=== PATIENT | male | born 1955 | race Caucasian/White ===

== ENCOUNTER → 2017-07-30 06:59 | Outpatient (CLI) | payer OTHER, SELFPAY ==
[2017-07-30 08:47] LABS: AST(SGOT) 18 U/L (15-37); Alanine Aminotransfer ALT/SGPT 25 U/L (16-61); Albumin, Serum 3.6 g/dL (3.2-5.0); Alkaline Phosphatase 80 U/L (45-117); Bilirubin, Direct 0.19 mg/dL (0.00-0.30); Cholesterol 143 mg/dL (200); Globulin 3.5 g/dL (2.2-4.2); High Density Lipoprotein 51 mg/dL; Protein, Total 7.1 g/dL (6.4-8.2); Triglycerides 78 mg/dL; Very Low Density Lipoprotein 16 mg/dL (5-40)
== END ==
PROVIDERS: Family Provider Family Medicine; PCP Family Medicine; Visit Provider Internal Medicine Cardiovascular Disease
DX: E78.5 Hyperlipidemia, unspecified (principal); Z79.899 Other long term (current) drug therapy
CPT/HCPCS: 36415; 80061; 80076

== ENCOUNTER → 2018-02-07 08:01 | Outpatient (CLI) | payer OTHER, SELFPAY ==
[2018-02-07 09:19] LABS: AST(SGOT) 20 U/L (15-37); Alanine Aminotransfer ALT/SGPT 29 U/L (16-61); Albumin, Serum 3.8 g/dL (3.2-5.0); Alkaline Phosphatase 92 U/L (45-117); Bilirubin, Direct 0.16 mg/dL (0.00-0.30); Cholesterol 141 mg/dL (200); Globulin 3.6 g/dL (2.2-4.2); High Density Lipoprotein 54 mg/dL; Protein, Total 7.4 g/dL (6.4-8.2); Triglycerides 74 mg/dL; Very Low Density Lipoprotein 15 mg/dL (5-40)
== END ==
PROVIDERS: Family Provider Family Medicine; PCP Family Medicine; Referring Provider Internal Medicine Cardiovascular Disease; Visit Provider Internal Medicine Cardiovascular Disease
DX: E78.5 Hyperlipidemia, unspecified (principal); Z79.899 Other long term (current) drug therapy
CPT/HCPCS: 36415; 80061; 80076

== ENCOUNTER → 2018-03-24 06:55 | Outpatient (CLI) | payer OTHER, SELFPAY ==
[2018-03-07 15:46] VITALS: BMI 29.9
--- NOTE | 2018-03-24 06:57 | ECHOD_ITS ---
Reason For Study: S/P VT Procedure This was a 2D Doppler, Color Flow transthoracic echocardiogram. Exam performed in department. Left Ventricle Normal LV size. Left ventricular systolic function is normal. The estimated ejection fraction is 55 %. Stage 1 diastolic dysfunction. No regional wall motion abnormalities noted. Right Ventricle Normal RV size. Normal systolic function. Atria Normal left atrium. Normal right atrium. Mitral Valve Normal mitral valve. Tricuspid Valve Normal tricuspid valve. Mild tricuspid valve insufficiency. Pulmonary artery systolic pressure is 24 mmHg. Aortic Valve Trisinus/trileaflet aortic valve. Mild diffuse aortic valve thickening. Pulmonic Valve Normal pulmonic valve. Great Vessels Normal aortic root. The pulmonary artery is normal size. Normal inferior vena cava. Pericardium/Pleural No pericardial effusion. MMode/2D Measurements & Calculations LVIDd: 4.6 cm IVSd: 1.0 cm Ao root diam: 3.2 cm LVIDs: 3.2 cm LVPWd: 1.1 cm FS: 31.5 % LAV(MOD-bp): 55.5 ml LA A4 area: 18.8 cm2 LA dimension(2D): 3.7 cm LAV(MOD-bp) Indexed: 28.6 ml/m2 LAV(MOD-sp2): 57.8 ml LAV(MOD-sp4): 51.0 ml RA A4 area: 16.2 cm2 Time Measurements MV dec time: 0.24 sec Doppler Measurements & Calculations MV E max han: 61.1 cm/sec Lat Peak E' Han: 9.6 cm/sec Med Peak E' Han: 7.6 cm/sec MV A max han: 74.5 cm/sec E/E' lat: 6.4 E/E' med: 8.1 MV E/A: 0.82 Ao V2 max: 125.4 cm/sec LV V1 max: 116.5 cm/sec PA V2 max: 118.2 cm/sec Ao max P.3 mmHg LV V1 max P.4 mmHg TR max han: 221.9 cm/sec TR max P.7 mmHg Interpretation Summary Normal LV size. Left ventricular systolic function is normal. The estimated ejection fraction is 55 %. Stage 1 diastolic dysfunction. Mild tricuspid valve insufficiency. Ordering Physician: Ellis Hall Referring Physician: Mark Hartman Performed By: Yoana Ga RDCS, RVT
--- NOTE | 2018-03-24 09:18 | STRESSREP ---
Stress Test Report Exercise myocardial perfusion stress test. 63-year-old man with a history of previous coronary bypass surgery. Stress protocol: Resting EKG demonstrates normal sinus rhythm with a rate of 73 bpm normal intervals are noted resting blood pressure is 150/80 mmHg. The patient exercised according to regular Louis protocol for a total duration of 9 minutes completing stage III of the Louis protocol. The maximum heart rate attained was 150 bpm which was 94% of maximum predicted heart rate the maximum workload was 10.1 metabolic equivalents. The patient maintained sinus rhythm throughout the recording. At rest there were no ST or T wave changes noted suggest ischemia peak exercise upsloping ST changes only were noted with normally the criteria for ischemia. Resting blood pressure 150/80 mmHg with a peak blood pressure of 230/72 mmHg rate pressure product was 34,000. Hypertensive response to exercise was noted. Myocardial perfusion protocol. 11.0 mCi of technetium 99m sestamibi was injected at rest. The patient exercised according to regular Louis protocol for 9 minutes and at peak exercise 33.0 mCi of technetium and 90 9M sestamibi was injected stress images were obtained stress and rest images were reconstructed and compared in the short axis vertical long horizontal long axis. Gated images were also obtained Perfusion SPECT analysis: Review of the stress images demonstrate normal uptake of tracer noted in all areas of the myocardium. The resting images similarly demonstrate normal uptake of tracer noted in all areas of myocardium. No areas of reversibility are noted suggest ischemia. Gated SPECT analysis: The gated ejection fraction is noted to be 62%. Conclusion: Normal exercise myocardial perfusion stress test at a high workload. Preserved ejection fraction. Good functional aerobic capacity.
== END ==
PROVIDERS: Family Provider Family Medicine; PCP Family Medicine; Referring Provider Internal Medicine Cardiovascular Disease; Visit Provider Internal Medicine Cardiovascular Disease
DX: I25.10 Atherosclerotic heart disease of native coronary artery without angina pectoris (principal); Z95.1 Presence of aortocoronary bypass graft
CPT/HCPCS: 78452; 93017; 93306; A9500; A4216

== ENCOUNTER → 2019-03-03 07:56 | Outpatient (CLI) | payer OTHER, SELFPAY ==
[2018-03-07 15:46] VITALS: BMI 29.9
[2019-03-03 09:27] LABS: AST(SGOT) 20 U/L (15-37); Alanine Aminotransfer ALT/SGPT 28 U/L (16-61); Albumin, Serum 3.8 g/dL (3.2-5.0); Alkaline Phosphatase 78 U/L (45-117); Bilirubin, Direct 0.15 mg/dL (0.00-0.30); Cholesterol 148 mg/dL (200); Globulin 3.7 g/dL (2.2-4.2); High Density Lipoprotein 60 mg/dL; Protein, Total 7.5 g/dL (6.4-8.2); Triglycerides 47 mg/dL; Very Low Density Lipoprotein 9 mg/dL (5-40)
== END ==
PROVIDERS: Family Provider Family Medicine; PCP Family Medicine; Referring Provider Nurse Practitioner Family; Visit Provider Nurse Practitioner Family
DX: E78.00 Pure hypercholesterolemia, unspecified (principal)
CPT/HCPCS: 36415; 80061; 80076

== ENCOUNTER → 2020-03-15 07:19 | Outpatient (CLI) | payer OTHER, SELFPAY ==
[2019-03-08 11:56] VITALS: BMI 26.8
[2020-03-15 08:38] LABS: AST(SGOT) 21 U/L (15-37); Alanine Aminotransfer ALT/SGPT 28 U/L (16-61); Albumin, Serum 3.8 g/dL (3.2-5.0); Alkaline Phosphatase 94 U/L (45-117); Bilirubin, Direct 0.26 mg/dL (0.00-0.30); Cholesterol 147 mg/dL (200); Globulin 3.8 g/dL (2.2-4.2); High Density Lipoprotein 69 mg/dL; Protein, Total 7.6 g/dL (6.4-8.2); Triglycerides 71 mg/dL; Very Low Density Lipoprotein 14 mg/dL (5-40)
== END ==
PROVIDERS: PCP Family Medicine; Referring Provider Nurse Practitioner Family; Visit Provider Nurse Practitioner Family
DX: E78.00 Pure hypercholesterolemia, unspecified (principal); E78.5 Hyperlipidemia, unspecified
CPT/HCPCS: 36415; 80061; 80076

== ENCOUNTER → 2020-10-31 08:00 | Outpatient (CLI) | payer OTHER, SELFPAY ==
[2020-03-20 15:32] VITALS: BMI 26.9
--- NOTE | 2020-10-31 08:17 | EKG12_ITS ---
Test Reason : PREOP Blood Pressure : / mmHG Vent. Rate : 064 BPM Atrial Rate : 064 BPM P-R Int : 194 ms QRS Dur : 106 ms QT Int : 400 ms P-R-T Axes : 036 031 035 degrees QTc Int : 412 ms Normal sinus rhythm Septal infarct , age undetermined Abnormal ECG Confirmed by EBEN LEDEZMA, MARTIR ([id number]), newspaper editor managing MONIQUE MIRAMONTES ([id number]) on 11/03/2020 9:50:02 AM Referred By: KAT Confirmed By:RADHA TREADWELL MD
[2020-10-31 08:28] LABS: Hematocrit 41.7 % (40-54); Hemoglobin 13.8 g/dL (13.0-16.5); Mean Corp Hgb Conc 33.1 g/dL (32-36); Mean Corpuscular Hgb 29.1 pg (27.0-32.0); Mean Platelet Vol. 8.8 fl (6.2-12.0); Platelet Count 245 K/mm3 (150-450); RBC Distribution Width CV 12.4 % (11.6-14.6); RBC Distribution Width SD 40.1 fl (35.1-43.9); Red Blood Count 4.74 M/mm3 (4.6-6.2)
[2020-10-31 09:17] LABS: AST(SGOT) 22 U/L (15-37); Alanine Aminotransfer ALT/SGPT 26 U/L (16-61); Albumin, Serum 3.7 g/dL (3.2-5.0); Alkaline Phosphatase 87 U/L (45-117); Anion Gap 5 (5-15); BUN 21 mg/dL (7-18); BUN/Creat Ratio 16.4 RATIO (10-20); Bilirubin, Direct 0.22 mg/dL (0.00-0.30); Calcium,Total 8.8 mg/dL (8.5-10.1); Chloride 107 mmol/L (98-107); Cholesterol 160 mg/dL (200); Creatinine, Serum 1.28 mg/dL (0.70-1.30); EST Glomerular Filtration Rate 60 mL/min (>60); Est Glom Filt Rate - Afr Amer 73 mL/min (>60); Globulin 3.7 g/dL (2.2-4.2); Glucose 93 mg/dL (74-106); High Density Lipoprotein 66 mg/dL; Potassium 3.6 mmol/L (3.5-5.1); Protein, Total 7.4 g/dL (6.4-8.2); Sodium Level 137 mmol/L (136-145); Triglycerides 60 mg/dL; Very Low Density Lipoprotein 12 mg/dL (5-40)
== END ==
PROVIDERS: Internal Medicine Cardiovascular Disease; PCP Family Medicine; Visit Provider Otolaryngology
DX: Z01.812 Encounter for preprocedural laboratory examination (principal); E78.5 Hyperlipidemia, unspecified
CPT/HCPCS: 36415; 80048; 80061; 80076; 85027; 93005

== ENCOUNTER → 2022-05-29 | Outpatient (CLI) | payer OTHER, SELFPAY ==
[2022-05-29 09:09] LABS: AST(SGOT) 17 U/L (15-37); Alanine Aminotransfer ALT/SGPT 28 U/L (16-61); Albumin, Serum 3.5 g/dL (3.2-5.0); Alkaline Phosphatase 72 U/L (45-117); Bilirubin, Direct 0.15 mg/dL (0.00-0.30); Cholesterol 138 mg/dL (200); Globulin 3.5 g/dL (2.2-4.2); High Density Lipoprotein 59 mg/dL; Triglycerides 55 mg/dL; Very Low Density Lipoprotein 11 mg/dL (5-40)
[2022-05-29 09:14] LABS: Anion Gap 6 (5-15); BUN 27 mg/dL (7-18); BUN/Creat Ratio 22.7 RATIO (10-20); Calcium,Total 8.5 mg/dL (8.5-10.1); Chloride 112 mmol/L (98-107); Creatinine, Serum 1.19 mg/dL (0.70-1.30); EST Glomerular Filtration Rate 65 mL/min (>60); Est Glom Filt Rate - Afr Amer 79 mL/min (>60); Glucose 104 mg/dL (74-106); PSA,Total - Annual Screen 0.38 ng/mL (0.00-4.00); Potassium 3.9 mmol/L (3.5-5.1); Sodium Level 142 mmol/L (136-145)
== END | disposition home or self-care (01) ==
LOC: LAB 08:02
PROVIDERS: Family Medicine; PCP Family Medicine; Visit Provider Internal Medicine Cardiovascular Disease
DX: Z00.00 Encounter for general adult medical examination without abnormal findings (principal); E78.00 Pure hypercholesterolemia, unspecified; I25.10 Atherosclerotic heart disease of native coronary artery without angina pectoris; Z12.5 Encounter for screening for malignant neoplasm of prostate
CPT/HCPCS: 80048; 80061; 80076; 84153; G0103

== ENCOUNTER → 2022-09-07 | Outpatient (CLI) | payer OTHER, SELFPAY ==
--- NOTE | 2022-09-07 17:00 | STRESSREP ---
Stress Test Report Exercise myocardial perfusion stress test. 67-year-old man with a history of coronary artery disease Stress protocol: Resting EKG demonstrates normal sinus rhythm with a rate of 61 bpm resting blood pressure is 160/70 mmHg. The patient exercised according to the regular Louis protocol for a total duration of 9 minutes and 16 seconds attaining a maximum heart rate of 141 bpm which was 90% of maximum predicted heart rate; the maximum workload was 10.9 METS metabolic equivalents. At rest there were no ST or T wave changes noted to suggest ischemia and at peak exercise upsloping ST changes only were noted which did not meet the criteria for ischemia. No clinical angina was noted the test was terminated due to the target heart rate being achieved/fatigue. The peak blood pressure was 190/86 mmHg. Rate-pressure product was 24,900. Myocardial perfusion protocol. 11.4 mCi of technetium 99m sestamibi was injected at rest. The patient exercised according to regular Louis protocol for total duration of 9 minutes and 16 seconds and at peak exercise 33.3 mCi of technetium 99m sestamibi was injected stress images were obtained stress and rest images were reconstructed in comparing the short axis vertical long and horizontal long axis. Gated images were also obtained. Perfusion SPECT analysis: Review of the stress images demonstrate normal uptake of tracer noted in all areas of the myocardium. The resting images similarly demonstrate normal uptake of tracer noted in all areas of the myocardium. No areas of reversibility are noted to suggest ischemia no previous infarct was noted. Gated SPECT analysis: The gated ejection fraction is 68%. Conclusion: Normal exercise myocardial perfusion stress test at a high workload Preserved ejection fraction.
== END | disposition home or self-care (01) ==
LOC: CVS 06:26
PROVIDERS: PCP Family Medicine; Referring Provider Internal Medicine Cardiovascular Disease; Visit Provider Internal Medicine Cardiovascular Disease
DX: I25.10 Atherosclerotic heart disease of native coronary artery without angina pectoris (principal); Z95.1 Presence of aortocoronary bypass graft
CPT/HCPCS: 78452; 93017; A9500; A4216

== ENCOUNTER → 2023-06-27 | Outpatient (CLI) | payer MEDICARE, OTHER, SELFPAY ==
--- NOTE | 2023-06-27 11:26 | RAD_ITS ---
EXAM: XR CHEST, 2 VIEWS CLINICAL INDICATION: cough TECHNIQUE: Frontal and lateral views of the chest. COMPARISON: No relevant prior studies available. FINDINGS: LUNGS AND PLEURAL SPACES: Normal. No consolidation or edema. No pneumothorax. No effusion. HEART: Normal heart size. Surgical changes of coronary artery bypass graft (CABG). MEDIASTINUM: No mediastinal or hilar mass. BONES/JOINTS: No acute abnormality. RAD/Chest PA and Lateral IMPRESSION: No acute findings in the chest. Electronically Signed: Barak Kim MD at 9:30 EDT ,
--- OUTSIDE RECORDS SUMMARY | 2023-06-27 12:44 | XMS RPT_ITS | CCD ---
Author Name Unknown Address [address] [place] [address] Organization [facility] Care Team Providers Care Hunter Trapper Name Role Phone Juana Nelson Unavailable Unavailable ESTUARDO WEISS Attending Unavailable ESTUARDO WEISS Primary Care Unavailable ESTUARDO WEISS Admitting Unavailable Allergies Allergy Classification Reported Allergen(s) Allergy Type Date of Onset Reaction(s) Facility (1 source) NTG drug allergy 4 Sever hypotension [facility] Work Phone: (2 sources) NKDA drug allergy 3 [facility] Work Phone: (1 source) nitroglycerin; Translations: [NITROGLYCERIN] Drug Allergy 6 [facility] Repository Medications Completed/Discontinued Medications Medication Drug Class(es) Dates Sig (Normalized) Sig (Original) adalimumab (2 sources) Tumor Necrosis Factor [place] Start: 09-25-2010 End: 01-18-2012 HUMIRA 40 MG/0.8ML KIT SQ for Psoriasis ADALIMUMAB [id number] Ellis Hall MD Problems Active Problems Problem Classification Problem Date Documented Da te Episodic/Chronic Coronary atherosclerosis and other heart disease (4 sources) Angina decubitus; Translations: [Coronary atherosclerosis] Onset: 09-25-2010 Resolved: 01-27-2016 09-25-2010 Chronic Disorders of lipid metabolism (1 source) Hyperlipidemia; Translations: [Hyperlipidemia, unspecified] Onset: 09-25-2010 09-25-2010 Chronic Essential hypertension (1 source) Hypertensive disorder; Translations: [Essential (primary) hypertension] Onset: 09-25-2010 09-25-2010 Chronic Unclassified (1 source) Long-term drug therapy; Translations: [Other penitentiary (current) drug therapy] Onset: 09-25-2010 09-25-2010 Past or Other Problems Problem Classification Problem Date Documented Da te Episodic/Chronic Coronary atherosclerosis and other heart disease (1 source) Presence of aortocoronary bypass graft; Translations: [Presence of aortocoronary bypass graft] Onset: 09-25-2010 09-25-2010 Episodic Other circulatory disease (1 source) H/O: heart disorder; Translations: [Personal history of other diseases of the circulatory system] Onset: 09-25-2010 01-27-2016 Episodic Xenia-; endo-; and myocarditis; cardiomyopathy (1 source) Acute pericarditis; Translations: [Acute pericarditis, unspecified] Onset: 09-25-2010 09-25-2010 Episodic Unclassified (2 sources) Body mass index (BMI) 26.0-26.9, adult; Translations: [Family history of stroke] Onset: 01-23-2013 01-23-2013 Episodic Results Test Name Value Interpretation Reference Range Facil ity Vital Signs Date Time Vital Sign Value Performing Clinician Aiden manrique 07-27-2016 09:51-0400 BMI (Body Mass Index) 26.98 kg/m2 [facility] Work Phone: 07-27-2016 09:51-0400 BP Diastolic 92 mm[Hg] [facility] Work Phone: 07-27-2016 09:51-0400 BP Systolic 166 mm[Hg] IEV DeFinis [facility] Work Phone: 07-27-2016 09:51-0400 Height 168.91 cm IEV DeFinis [facility] Work Phone: 07-27-2016 09:51-0400 Pulse (Heart Rate) 61 /min IEV DeFinis [facility] Work Phone: 07-27-2016 09:51-0400 Respiratory Rate 18 /min In[facility] Work Phone: 07-27-2016 09:51-0400 Weight 76.98 kg Infrascaleis [facility] Work Phone: 01-27-2016 08:48-0400 BSA (Body Surface Area) 1.88 m2 Juana DeFinis [facility] Work Phone: 01-21-2015 08:34-0400 BP Diastolic 60 mm[Hg] Juana DeFinis [facility] Work Phone: 01-21-2015 08:34-0400 BP Systolic 178 mm[Hg] Harraul DeFinesteban [facility] Work Phone: 01-23-2013 08:31-0400 Pulse (Heart Rate) 66 /min Juana DeFinis [facility] Work Phone: Encounters Encounter Date Encounter Type Care Provider Facility Start: 06-24-2020 End: 06-24-2020 Patient encounter procedure ESTUARDO WEISS [facility] Start: 06-21-2017 End: 06-22-2017 Ambulatory [facility] Procedures Date Procedure Procedure Detail Performing Clinician Start: 01-18-2017 End: 02-07-2017 *Hepatic Function Panel Mani Baptiste Start: 01-18-2017 End: 02-07-2017 Lipid Mamadou panel - Serum or Plasma Ellis Hall MD Start: 07-27-2016 End: 07-27-2016 UPHOLSTERY BUNDLER Danisha Bravo PA-C Work Phone: Start: 07-27-2016 End: 07-27-2016 Follow Up Appt 6 months Danisha hernandes PA-C Work Phone: Start: 07-19-2016 End: 07-19-2016 *Hepatic Function Panel Mani Baptiste Start: 07-19-2016 End: 07-19-2016 Lipid Mamadou panel - Serum or Plasma Ellis Hall MD Start: 01-27-2016 End: 01-27-2016 Follow Up Appt 6 months Mani Baptiste Start: 01-27-2016 End: 01-27-2016 MMM Ellis Hall MD Start: 01-17-2016 End: 01-26-2016 *Hepatic Function Panel Mani Baptiste Start: 01-17-2016 End: 01-26-2016 Lipid 1996 panel - Serum or Plasma Ellis Hall MD Start: 07-18-2015 End: 08-04-2015 *Hepatic Function Panel Mani Baptiste Start: 07-18-2015 End: 08-04-2015 Lipid 1996 panel - Serum or Plasma Ellis Hall MD Start: 01-21-2015 End: 01-21-2015 UPHOLSTERY BUNDLER Ellis Hall MD Start: 01-21-2015 End: 01-22-2015 Documentation of current medications Ellis Hall MD Start: 01-21-2015 End: 01-21-2015 Follow Up Appt 1 year Ellis Hall MD Start: 01-16-2015 End: 01-16-2015 *Hepatic Function Panel Mani Baptiste Start: 01-16-2015 End: 01-16-2015 Lipid 1996 panel - Serum or Plasma Ellis Hall MD Start: 07-22-2014 End: 07-29-2014 *Hepatic Function Panel Mani Baptiste Start: 07-22-2014 End: 07-29-2014 Lipid 1996 panel - Serum or Plasma Ellis Hall MD Start: 01-22-2014 End: 01-22-2014 ADRIAN Hall MD Start: 01-22-2014 End: 01-22-2014 Follow Up Appt 1 year Ellis Hall MD Start: 01-16-2014 End: 01-21-2014 *Hepatic Function Panel Mani Baptiste Start: 01-16-2014 End: 01-21-2014 Lipid 1996 panel - Serum or Plasma Ellis Hall MD Start: 07-17-2013 End: 08-14-2013 *Hepatic Function Panel Mani Baptiste Start: 07-17-2013 End: 08-14-2013 Lipid 1996 panel - Serum or Plasma Ellis Hall MD Start: 01-23-2013 End: 01-21-2015 UPHOLSTERY BUNDLER Ellis Hall MD Start: 01-23-2013 End: 01-23-2013 Ecg routine ecg w/least 12 lds w/i&r Ellis Hall MD Start: 01-23-2013 End: 01-21-2015 Follow Up Appt 1 year Ellis Hall MD Start: 01-23-2013 End: 01-31-2013 Nuclear stress test -exercise lElis Hall MD Start: 01-16-2013 End: 01-24-2013 *Hepatic Function Panel Mani Baptiste Start: 01-16-2013 End: 01-24-2013 Lipid Mamadou panel - Serum or Plasma Ellis Hall MD Start: 02-09-2012 End: 08-16-2012 *Hepatic Function Panel Mani Baptiste Start: 02-09-2012 End: 08-16-2012 Lipid 1996 panel - Serum or Plasma Ellis Hall MD Start: 01-18-2012 End: 01-21-2015 Follow Up Appt 6 months Mani Baptiste Plan of Treatment Date Care Activity Detail Author Start: 08-08-2017 End: 02-11-2017 *Hepatic Function Panel *Hepatic Function Panel [facility] Work Phone: Start: 08-08-2017 End: 02-11-2017 Lipid panel [AGGREGATE] *Lipid Profile CC PCP [facility] Work Phone: Start: 02-15-2017 End: 02-15-2017 Appointment Appointment [facility] Work Phone: Start: 01-18-2017 End: 02-07-2017 *Hepatic Function Panel *Hepatic Function Panel [facility] Work Phone: Start: 01-18-2017 End: 02-07-2017 Lipid panel [AGGREGATE] *Lipid Profile CC PCP [facility] Work Phone: Start: 07-27-2016 End: 07-27-2016 UPHOLSTERY BUNDLER UPHOLSTERY BUNDLER [facility] Work Phone: Start: 07-27-2016 End: 07-27-2016 Follow Up Appt 6 months Follow Up Appt 6 months [facility] Work Phone: Start: 07-26-2016 End: 07-19-2016 *Hepatic Function Panel *Hepatic Function Panel [facility] Work Phone: Start: 07-26-2016 End: 07-19-2016 Lipid panel [AGGREGATE] *Lipid Profile CC PCP [facility] Work Phone: Start: 01-27-2016 End: 01-27-2016 Follow Up Appt 6 months Follow Up Appt 6 months [facility] Work Phone: Start: 01-27-2016 End: 01-27-2016 MMM MMM [facility] Work Phone: Start: 01-17-2016 End: 01-26-2016 *Hepatic Function Panel *Hepatic Function Panel [facility] Work Phone: Start: 01-17-2016 End: 01-26-2016 Lipid panel [AGGREGATE] *Lipid Profile CC PCP [facility] Work Phone: Start: 07-18-2015 End: 08-04-2015 *Hepatic Function Panel *Hepatic Function Panel [facility] Work Phone: Start: 07-18-2015 End: 08-04-2015 Lipid panel [AGGREGATE] *Lipid Profile CC PCP [facility] Work Phone: Start: 01-27-2015 End: 01-16-2015 *Hepatic Function Panel *Hepatic Function Panel [facility] Work Phone: Start: 01-27-2015 End: 01-16-2015 Lipid panel [AGGREGATE] *Lipid Profile CC PCP [facility] Work Phone: Start: 01-21-2015 End: 01-21-2015 UPHOLSTERY BUNDLER UPHOLSTERY BUNDLER [facility] Work Phone: Start: 01-21-2015 End: 01-21-2015 Follow Up Appt 1 year Follow Up Appt 1 year [facility] Work Phone: Start: 07-22-2014 End: 07-29-2014 *Hepatic Function Panel *Hepatic Function Panel [facility] Work Phone: Start: 07-22-2014 End: 07-29-2014 Lipid panel [AGGREGATE] *Lipid Profile CC PCP [facility] Work Phone: Start: 01-22-2014 End: 01-22-2014 UPHOLSTERY BUNDLER UPHOLSTERY BUNDLER [facility] Work Phone: Start: 01-22-2014 End: 01-22-2014 Follow Up Appt 1 year Follow Up Appt 1 year [facility] Work Phone: Start: 01-16-2014 End: 01-21-2014 *Hepatic Function Panel *Hepatic Function Panel [facility] Work Phone: Start: 01-16-2014 End: 01-21-2014 Lipid panel [AGGREGATE] *Lipid Profile CC PCP [facility] Work Phone: Start: 07-17-2013 End: 08-14-2013 *Hepatic Function Panel *Hepatic Function Panel [facility] Work Phone: Start: 07-17-2013 End: 08-14-2013 Lipid panel [AGGREGATE] *Lipid Profile CC PCP [facility] Work Phone: Start: 01-23-2013 End: 01-21-2015 UPHOLSTERY BUNDLER UPHOLSTERY BUNDLER [facility] Work Phone: Start: 01-23-2013 End: 01-23-2013 Ecg routine ecg w/least 12 lds w/i&r EKG (In office) [facility] Work Phone: Start: 01-23-2013 End: 01-21-2015 Follow Up Appt 1 year Follow Up Appt 1 year [facility] Work Phone: Start: 01-23-2013 End: 01-23-2013 Nuclear stress test -exercise Nuclear stress test -exercise [facility] Work Phone: Start: 01-16-2013 End: 01-24-2013 *Hepatic Function Panel *Hepatic Function Panel [facility] Work Phone: Start: 01-16-2013 End: 01-24-2013 Lipid panel [AGGREGATE] *Lipid Profile [facility] Work Phone: Start: 02-09-2012 End: 08-16-2012 *Hepatic Function Panel *Hepatic Function Panel [facility] Work Phone: Start: 02-09-2012 End: 08-16-2012 Lipid panel [AGGREGATE] *Lipid Profile [facility] Work Phone: Start: 01-18-2012 End: 01-18-2012 Follow Up Appt 6 months Follow Up Appt 6 months [facility] Work Phone: Patient Education [facility] Work Phone: Payers Date Payer Category Payer Unknown [id number] Private Health Insurance [id number] Summary Purpose Family History No Family History Records FoundNo Family History Records Found Advance Directives No Advanced Directives Records FoundNo Advanced Directives Records Found Additional Source Comments (unrecognized sect ion and content) No Status Records FoundNo Status Records Found INFORMATION SOURCE (unrecogn ized section and content) DATE CREATED AUTHOR AUTHOR'S GUILLERMOVIV ATION 07/06/2020 [facility] FOR RECORDS PERTAINING TO PATIENTS WHO ARE OR HAVE BEEN ENROLLED IN A CHEMICAL DEPENDENCY/SUBSTANCEABUSE PROGRAM, SOME INFORMATION MAY BE OMITTED. This clinical summary was aggregated from multiple sources. Caution should be exercised in using it in the provision of clinical care. This summary normalizes information from multiple sources, and as a consequence, information in this document may materially change the coding, format and clinical context of patient data. In addition, data may be omitted in some cases. CLINICAL DECISIONS SHOULD BE BASED ON THE PRIMARY CLINICAL RECORDS. [employer] provides no warranty or guarantee of the accuracy or completeness of information in this document.
== END | disposition home or self-care (01) ==
LOC: MTRAD 11:25
PROVIDERS: PCP Family Medicine; Referring Provider Family Medicine; Visit Provider Family Medicine
DX: J98.01 Acute bronchospasm (principal)
CPT/HCPCS: 71046

== ENCOUNTER → 2023-07-28 | Outpatient (CLI) | payer MEDICARE, OTHER, SELFPAY ==
[2023-07-28 08:11] LABS: Hematocrit 47.5 % (40-54); Mean Corp Hgb Conc 33.7 g/dL (32-36); Mean Corpuscular Hgb 29.4 pg (27.0-32.0); Mean Corpuscular Volume 87.2 fL (80-94); Mean Platelet Vol. 8.9 fl (6.2-12.0); Platelet Count 246 K/mm3 (150-450); RBC Distribution Width SD 41.2 fl (35.1-43.9); Red Blood Count 5.45 M/mm3 (4.6-6.2); White Blood Count 8.4 K/mm3 (4.4-11.0)
[2023-07-28 08:53] LABS: ALB/GLOB Ratio 0.9 RATIO (0.9-2.4); AST(SGOT) 23 U/L (15-37); Alanine Aminotransfer ALT/SGPT 43 U/L (16-61); Albumin, Serum 3.7 g/dL (3.2-5.0); Alkaline Phosphatase 89 U/L (45-117); Anion Gap 5 (5-15); BUN 21 mg/dL (7-18); BUN/Creat Ratio 14.9 RATIO (10-20); Calcium,Total 9.1 mg/dL (8.5-10.1); Chloride 108 mmol/L (98-107); Creatinine, Serum 1.41 mg/dL (0.70-1.30); EST Glomerular Filtration Rate 53 mL/min (>60); Est Glom Filt Rate - Afr Amer 65 mL/min (>60); Globulin 3.9 g/dL (2.2-4.2); Glucose 108 mg/dL (74-106); PSA,Total - Annual Screen 0.37 ng/mL (0.00-4.00); Potassium 3.8 mmol/L (3.5-5.1); Protein, Total 7.6 g/dL (6.4-8.2); Sodium Level 140 mmol/L (136-145)
[2023-07-28 10:03] LABS: Cholesterol 187 mg/dL (200); High Density Lipoprotein 59 mg/dL; Triglycerides 109 mg/dL; Very Low Density Lipoprotein 22 mg/dL (5-40)
== END | disposition home or self-care (01) ==
PROVIDERS: Internal Medicine Cardiovascular Disease; PCP Family Medicine; Referring Provider Family Medicine; Visit Provider Family Medicine
DX: E78.00 Pure hypercholesterolemia, unspecified (principal); I25.10 Atherosclerotic heart disease of native coronary artery without angina pectoris; Z12.5 Encounter for screening for malignant neoplasm of prostate
CPT/HCPCS: 36415; 80053; 80061; 84153; 85027; G0103

== ENCOUNTER → 2024-01-02 | Outpatient (CLI) | payer MEDICARE, OTHER, SELFPAY ==
--- NOTE | 2024-01-02 09:28 | RAD_ITS ---
INDICATION: pain R hip EXAMINATION/TECHNIQUE: X-RAY - RIGHT XR Hip Unilateral with Pelvis when performed; 2-3 Views COMPARISON: A radiation dose optimization technique was used for this scan. FINDINGS: Single frontal view of the pelvis. 2 views the right hip. BONES: Normal anatomic alignment without evidence of fracture or subluxation. Prominent exostosis of the right iliac wing. JOINTS: No significant degenerative change. SOFT TISSUES: Unremarkable. RAD/HIP, UNI W/ Pelvis 2-3 Views IMPRESSION: Prominent exostosis of the right iliac wing which may represent enthesophyte versus possible osteochondroma. No acute osseous abnormality. Electronically Signed: Jonathan Pearl MD at 7:03 EDT ,
--- NOTE | 2024-01-02 09:28 | RAD_ITS ---
EXAM: XR LUMBOSACRAL SPINE, 2 OR 3 VIEWS CLINICAL INDICATION: pain, ? scoliosis TECHNIQUE: Frontal and lateral views of the lumbar spine and sacrum. COMPARISON: No relevant prior studies available. FINDINGS: VERTEBRAE: Diffuse spondylosis with marginal osteophytes and mild disc space narrowing at the L3-L4 level. Bridging osteophytes anteriorly in the lower thoracic spine consistent with diffuse idiopathic skeletal hyperostosis. Mild anterolisthesis of L5-S1 measuring approximately 5 mm associated with bilateral facet arthropathy. Bilateral multilevel vertebral facet arthropathy. Preserved vertebral body height. No fracture. No significant scoliosis.SPACES: See above. GASTROINTESTINAL TRACT: Unremarkable as visualized. Included bowel gas pattern is non-obstructive. RAD/Lumbar Spine 2 or 3 Views IMPRESSION: 1. No significant scoliosis. 2. Mild anterolisthesis of L5-S1 measuring approximately 5 mm associated with bilateral facet arthropathy. 3. Diffuse spondylosis with marginal osteophytes and mild disc space narrowing at the L3-L4 level. 4. Bridging osteophytes anteriorly in the lower thoracic spine consistent with diffuse idiopathic skeletal hyperostosis. 5. Bilateral multilevel vertebral facet arthropathy. Electronically Signed: Jerome Aguila MD at 1:49 EDT ,
== END | disposition home or self-care (01) ==
PROVIDERS: PCP Family Medicine; Referring Provider Family Medicine; Visit Provider Family Medicine
DX: M25.551 Pain in right hip (principal)
CPT/HCPCS: 72100; 73502

== ENCOUNTER → 2024-09-13 | Outpatient (CLI) | payer MEDICARE, OTHER, SELFPAY ==
[2024-09-13 08:36] LABS: Hematocrit 42.9 % (40-54); Hemoglobin 14.6 g/dL (13.0-16.5); Mean Corpuscular Hgb 29.9 pg (27.0-32.0); Mean Corpuscular Volume 87.9 fL (80-94); Platelet Count 216 K/mm3 (150-450); RBC Distribution Width CV 12.8 % (11.6-14.6); RBC Distribution Width SD 40.9 fl (35.1-43.9); Red Blood Count 4.88 M/mm3 (4.6-6.2); White Blood Count 7.7 K/mm3 (4.4-11.0)
[2024-09-13 09:09] LABS: AST(SGOT) 27 U/L (<=37); Alanine Aminotransfer ALT/SGPT 28 U/L (<=46); Alkaline Phosphatase 87 U/L (40-129); Bilirubin, Direct 0.17 mg/dL (0.00-0.30); Cholesterol 172 mg/dL (<=200); Globulin 3.1 g/dL (2.2-4.2); High Density Lipoprotein 52 mg/dL; Low Density Lipoprotein Calc. 105 mg/dL; Protein, Total 7.1 g/dL (5.9-8.4); Total Bilirubin 0.48 mg/dL (0.00-1.30); Triglycerides 79 mg/dL; Very Low Density Lipoprotein 16 mg/dL (5-40); cholesterol:hdl ratio screen 3.34
[2024-09-13 10:51] LABS: PSA,Total - Annual Screen 0.29 ng/mL (0.02-4.00)
[2024-09-13 10:53] LABS: ALB/GLOB Ratio 1.3 RATIO (0.9-2.4); AST(SGOT) 26 U/L (<=37); Alanine Aminotransfer ALT/SGPT 29 U/L (<=46); Alkaline Phosphatase 86 U/L (40-129); Anion Gap 12 (5-15); BUN 22 mg/dL (4-19); BUN/Creat Ratio 17.7 RATIO (10-20); Calcium,Total 9.3 mg/dL (7.6-11.0); Carbon Dioxide 21.7 mmol/L (21.0-32.0); Chloride 106 mmol/L (98-108); Creatinine, Serum 1.23 mg/dL (0.70-1.20); EST Glomerular Filtration Rate 64 (>60); Glucose 98 mg/dL (70-99); Potassium 4.3 mmol/L (3.3-5.1); Sodium Level 140 mmol/L (133-145); Total Bilirubin 0.45 mg/dL (0.00-1.30)
== END | disposition home or self-care (01) ==
LOC: LAB 07:37
PROVIDERS: PCP Family Medicine; Referring Provider Internal Medicine Cardiovascular Disease; Visit Provider Internal Medicine Cardiovascular Disease
DX: Z12.5 Encounter for screening for malignant neoplasm of prostate (principal); E78.00 Pure hypercholesterolemia, unspecified; I25.10 Atherosclerotic heart disease of native coronary artery without angina pectoris
CPT/HCPCS: 36415; 80053; 80061; 80076; 84153; 85027; G0103